=== PATIENT | female | born 1975 | race Caucasian/White ===

== ENCOUNTER 2024-08-30 16:53 | Inpatient (IN) | payer BC, OTHER ==
[~2024-08-30] VITALS: Ht 170.2 cm; Wt 129.0 kg
--- NOTE | 2024-08-30 17:17 | ED.PDOC ---
History of Present Illness HPI Comments 48-year-old female presents with a chief complaint of SOB x 2 weeks. Patient mentions that she has had 3 trips to the [facility] urgent care for the past 2 weeks and received breathing treatments, Rocephin injection, Steroid Injection, and chest x-ray. Patient mentions that the provider in urgent care told her that her chest x-ray "did not look good, but not bad either". Patient mentions that they referred her to the ER for IV antibiotics. No other symptoms or modifying factors present at this time. Patient is sating at 99% on room air. Chief Complaint: Shortness of Breath Time Seen by MD: 17:09 Reviewed Notes: Nurses Notes, Medications, Allergies Information Source: Patient Mode of Arrival: Ambulatory Severity: Moderate Timing: Weeks Duration: Since onset Prehospital treatment: None Past Medical History PAST MEDICAL HISTORY: Denies Surgical History: , Tubal Ligation HEALTHCARE SPECIALIST History: Denies all HEALTHCARE SPECIALIST Hx Family History Family History: Reviewed,noncontributory to illness Social History Smoker: Non-Smoker Alcohol: Occasionally Drugs: Marijuana Lives In: Home Constitutional: denies: chills, diaphoresis, fatigue, fever, malaise, sweats, weakness, others EENTM: denies: blurred vision, double vision, ear bleeding, ear discharge, ear drainage, ear pain, ear ringing, eye pain, eye redness, hearing loss, mouth pain, mouth swelling, nasal discharge, nose bleeding, nose congestion, nose pain, photophobia, tearing, throat pain, throat swelling, voice changes, others Respiratory: reports: SOB at rest, shortness of breath, SOB with excertion; denies: cough, hemoptysis, orthopnea, stridor, wheezing, others Cardiovascular: denies: chest pain, dizzy spells, diaphoresis, Dyspnea on exertion, edema, irregular heart beat, left arm pain, lightheadedness, palpitations, PND, syncope, others Gastrointestinal: denies: abdomen distended, abdominal pain, blood streaked bowels, constipated, diarrhea, dysphagia, difficulty swallowing, hematemesis, melena, nausea, poor appetite, poor fluid intake, rectal bleeding, rectal pain, vomiting, others Genitourinary: denies: abnormal vagina bleeding, burning, dyspareunia, dysuria, flank pain, frequency, hematuria, incontinence, pain, , vagina discharge, urgency, others Neurological: denies: dizziness, fainting, headache, left sided numbness, left sided weakness, numbness, paresthesia, pre-existing deficit, right sided numbness, right sided weakness, seizure, speech problems, tingling, tremors, weakness, others Musculoskeletal: denies: back pain, gout, joint pain, joint swelling, muscle pain, muscle stiffness, neck pain, others Integumetry: denies: bruises, change in color, change in hair/nails, dryness, laceration, lesions, lumps, rash, wounds, others Allergic/Immunocompromised: denies: Difficulty Healing, Frequent Infections, Hives, Itching, others Hematologic/Lymphatic: denies: anemia, blood clots, easy bleeding, easy bruising, swollen glands, others Endocrine: denies: excessive hunger, excessive sweating, excessive thirst, excessive urination, flushing, intolerance to cold, intolerance to heat, unexplained weight gain, unexplained weight loss, others Psychiatric: denies: anxiety, bipolar disorder, depression, hopeless, panic disorder, schizophrenia, sleepless, suicidal, others All Other Systems: Reviewed and Negative Physical Exam General Appearance: Mild Distress HEENT: Normal ENT Inspection, Pharynx Normal, TMs Normal Neck: Full Range of Motion, Non-Tender, Normal, Normal Inspection Respiratory: Chest Non-Tender, Lungs Clear, No Accessory Muscle Use, No Respiratory Distress, Normal Breath Sounds Cardiovascular: No Edema, No JVD, No Murmur, No Gallop, Normal Peripheral Pulses, Regular Rate/Rhythm Breast Exam: Deferred Gastrointestinal: No Organomegaly, Non Tender, No Pulsatile Mass, Normal Bowel Sounds, Soft Genitalia: Deferred Pelvic: Deferred Rectal: Deferred Extremities: No calf tenderness, Normal capillary refill, Normal inspection, Normal range of motion, Non-tender, No pedal edema Musculoskeletal : Apperance: Normal Neurologic: Alert, department chair II-XII nml as Tested, No Motor Deficits, Normal Affect, Normal Mood, No Sensory Deficits Cerebellar Function: Normal Reflexes: Normal Skin: Dry, Normal Color, Warm Lymphatic: No Adenopathy Was a procedure done? Was a procedure done?: No Differential Dx Considerations may include: Pneumonia, pneumonitis, CHF X-Ray, Labs, Meds, VS Vital Signs Date Time Temp Pulse Resp B/P (MAP) Pulse Ox O2 Delivery O2 Flow Rate FiO2 3/5/25 20:44 98.0 95 18 154/98 (116) 98 98.0 08/30/24 17:38 17 99 Room Air* 0 21 08/30/24 17:30 98.2 89 17 158/91 (113) 99 Lab Test 08/30/24 17:41 Range/Units White Blood Count 13.6 H 4.4-10.8 10^3/uL Red Blood Count 4.44 4.0-5.20 10^6/uL Hemoglobin 14.1 12.2-16.2 g/dL Hematocrit 41.6 36.0-46.0 % Mean Corpuscular Volume 93.9 80.0-100.0 fL Mean Corpuscular Hemoglobin 31.8 28.0-32.0 pg Mean Corpuscular Hemoglobin Concent 33.9 32.0-36.0 g/dL Red Cell Distribution Width 14.1 11.8-14.3 % Platelet Count 329 140-450 10^3/uL Mean Platelet Volume 8.0 6.9-10.8 fL Neutrophils (%) (Auto) 37.0-80.0 % Lymphocytes (%) (Auto) 10.0-50.0 % Monocytes (%) (Auto) 0.0-12.0 % Basophils (%) (Auto) 0.0-2.0 % Neutrophils # (Auto) 1.6-8.6 10 ^3/uL Lymphocytes # (Auto) 0.4-5.4 10 ^3/uL Monocytes # (Auto) 0-1.3 10 ^3/uL Differential Total Cells Counted 100.0 100 Neutrophils % (Manual) 78 37.0-80.0 Band Neutrophils % (Manual) 7 Lymphocytes % (Manual) 10 10.0-50.0 Monocytes % (Manual) 5 0-12 Eosinophils % (Manual) 0 0-7 Basophils % (Manual) 0 0.0-2.0 Metamyelocytes % (manual) 0 Myelocytes % (Manual) 0 Promyelocytes % (Manual) 0 Blast Cells % (Manual) 0 Reactive Lymphocytes 0 Platelet Estimate Adequate Sodium Level 139 136-145 mmol/L Potassium Level 4.3 3.5-5.1 mmol/L Chloride Level 103 98-107 mmol/L Carbon Dioxide Level 27 20-31 mmol/L Anion Gap 9 5-15 Blood Urea Nitrogen 20 9-23 mg/dL Creatinine 0.89 0.550-1.02 mg/dL Glomerular Filtration Rate Calc 79 >90 mL/min BUN/Creatinine Ratio 22.5 H 10.0-20.0 Serum Glucose 125 H 74-106 mg/dL Calcium Level 10.2 8.7-10.4 mg/dL Chest X-Ray Impression: No acute cardiopulmonary process The patient's CBC shows an elevated white blood cell count of 13.6 The chemistry panel is within normal limits except for mild hyperglycemia An IV Hep-Lock was established The patient was given Rocephin 1 g IV piggyback The patient was being admitted at this time. Images Reviewed?: Images reviewed and evaluated by me Time of 1ST Reevaluation: 17:39 Reevaluation 1ST: Unchanged Patient Education/Counseling: Diagnosis, Treatment, Prognosis Family Education/Counseling: Diagnosis, Treatment, Prognosis Departure 1 Departure Time of Disposition: 21:24 Impression: Primary Impression: Dyspnea Qualified Codes: R06.00 - Dyspnea, unspecified Additional Impression: Pneumonitis Disposition: ADMITTED INPATIENT Admit to: Med Surg Condition: Fair Critical Care Note Critical Care Time?: No Stability Stability form required: Yes Unstable for transfer: ED Physician Assesment (Clinical assesment) Heart Score Heart Score: Heart Score Response (Comments) Value History N/A 0 EKG N/A 0 Age N/A 0 Risk Factors N/A 0 Troponin N/A 0 Total 0 I personally scribed for OPAL HELTON MD ([email or web address]) on 08/30/24 at 17:17. Electronically submitted by Dung Luna [email or web address]). I personally scribed for OPAL HELTON MD ([email or web address]) on 08/30/24 at 18:23. Electronically submitted by Dung Luna [email or web address]). OPAL HELTON MD Aug 30, 2024 17:17
--- NOTE | 2024-08-30 17:41 | DVH ---
EXAM: XR Chest, 2 Views CLINICAL INDICATION: sob TECHNIQUE: Frontal and lateral views of the chest. COMPARISON: None FINDINGS: LUNGS AND PLEURAL SPACES: Unremarkable. No consolidation. No pneumothorax. HEART: Unremarkable. No cardiomegaly. MEDIASTINUM: Unremarkable. Normal mediastinal contour. BONES/JOINTS: Unremarkable. No acute fracture. OTHER FINDINGS: . None. IMPRESSION: No acute cardiopulmonary process.
[2024-08-30 18:15] LABS: Chloride 103 mmol/L (98-107); Potassium 4.3 mmol/L (3.5-5.1); Sodium 139 mmol/L (136-145)
[2024-08-30 18:16] LABS: Anion Gap 9 (5-15); Calcium 10.2 mg/dL (8.7-10.4); Carbon Dioxide 27 mmol/L (20-31)
[2024-08-30 18:21] LABS: BUN/Creatinine Ratio 22.5 (10.0-20.0); Blood Urea Nitrogen 20 mg/dL (9-23)
[2024-08-30 18:26] LABS: Glucose 125 mg/dL (74-106)
[2024-08-30 18:59] LABS: Hematocrit 41.6 % (36.0-46.0); Hemoglobin 14.1 g/dL (12.2-16.2); Mean Corpuscular Hemoglobin 31.8 pg (28.0-32.0); Mean Corpuscular Hgb Conc. 33.9 g/dL (32.0-36.0); Mean Corpuscular Volume 93.9 fL (80.0-100.0); Platelet Count (auto) 329 10^3/uL (140-450); Red Blood Cells 4.44 10^6/uL (4.0-5.20); Red Cell Distribution Width 14.1 % (11.8-14.3); White Blood Cell 13.6 10^3/uL (4.4-10.8)
[2024-08-30 19:00] LABS: Basophils % (manual) 0 (0.0-2.0); Blast Cells 0; Eosinophils % (manual) 0 (0-7); Metamyelocytes % 0; Myelocytes % 0; Promyelocytes % 0; Reactive Lymphocytes 0
[2024-08-30 19:38] LABS: Band Neutrophils % (manual) 7; Lymphocytes % (manual) 10 (10.0-50.0); Monocytes % (manual) 5 (0-12); Platelet Estimate Adequate
[2024-08-30] MEDS ORDERED: ACETAMINOPHEN 325 MG TAB PO PRN (22:00)
--- NOTE | 2024-08-30 22:24 | DVHHPRES ---
History of Present Illness Resident Creating Document: MIRZA BANKS History of Present Illness This is a 48-year-old female with past medical history of migraines. The patient presented to the ED with chief complaint of acute shortness of breath. The patient reports that she started feeling sick home August 16/2025 and went to the urgent care on August 21/2025 where she was treated for pneumoniae. Patient stated that she continue having symptoms reason why she went back to the urgent care on August [id number] and she got ceftriaxone and azithromycin. Was di scharged home on she was hiking and azithromycin at that time, she just took azithromycin. The patient presented today to the ED with similar symptoms associated with chills, shaky and shortness of breaths but denies fever. The patient states that she has been having shortness of breath even at rest that exacerbates with very minimal exertion. He also reported episodes of palpit ation and very mild chest discomfort. The patient also reports cough but no sputum production at this time. The patient denied swelling in her legs or any previous history of clots in her or her family. Initial labs on admission showed a WBC of 13.6 but rest of the labs were grossly unremarkable. Initial chest x-ray was grossly clear with no evidence of clear consolidation or v ascular congestion. We ordered a D-dimer, we will admit the patient for further assessment and management. Past medical history: Migraines Home medications: None Social history: Smoked for 10 years but quit. Drinks alcohol occasionally and denies any drug intake. ESL TEACHER: Migraine Past Surgical History: None Family History: None Smoke: Quit ALCOHOL: occassional Drugs: None Lives: with Family Domestic Violence: Neg Review of Systems Constitutional: Yes: Chills, Sweats; No: Fever, Weakness, Malaise, Other Eyes: No: Pain, Vision change, Conjunctivae inflammation, Eyelid inflammation, Other, Redness ENT: No: Ear pain, Ear discharge, Nose pain, Nose discharge, Nose congestion, Mouth pain, Mouth swelling, Throat pain, Throat swelling, Other Respiratory: Cough, Dry, Shortness of breath, SOB with excertion; No: Wheezing, Hemoptysis, Pleuritic Pain, Sputum, Wheezing, Other Cardiovascular: No: Chest Pain, Palpitations, Orthopnea, Paroxysmal Noc. Dyspnea, Edema, Lt Headedness, Other Gastrointestinal: No: Nausea, Vomiting, Abdominal Pain, Diarrhea, Constipation, Melena, Hematochezia, Other Genitourinary: No Dysuria, No Frequency, No Incontinence, No Hematuria, No Retention, No Other Musculoskeletal: No: other, neck pain, shoulder pain, arm pain, back pain, hand pain, leg pain, foot pain Skin: No: Rash, Lesions, Jaundice, Bruising, Other Neurological: No: Weakness, Numbness, Incoordination, Change in speech, Confusion, Seizures, Other Allergies: Coded Allergies: NO KNOWN ALLERGIES (Unverified , 08/30/24) Exam Vital Signs Vital Signs Date Time Temp Pulse Resp B/P (MAP) Pulse Ox O2 Delivery O2 Flow Rate FiO2 08/30/24 20:44 98.0 95 18 154/98 (116) 98 98.0 08/30/24 17:38 Room Air* 0 21 General Appearance: Alert, Oriented X3, Cooperative, No acute distress HEENT: Atraumatic, PERRLA, EOMI, Mucous membr. moist/pink Respiratory: Clear to auscultation, Normal air movement Cardiovascular: Regular rate, Normal S1, Normal S2, No murmurs Abdominal: Normal bowel sounds, Soft, No tenderness, No hepatospenomegaly, No masses Extremities: No clubbing, No cyanosis, No edema, Normal pulses, No tenderness/swelling Skin: No rashes, No breakdown, No significant lesion Neuro: Normal gait, Normal speech, Strength at 5/5 X4 ext, Normal tone, Sensation intact, Cranial nerves 3-12 NL, Reflexes 2+ Psych/Mental Status: Mental status NL, Mood NL Labs/Xrays Labs Test 08/30/24 21:26 08/30/24 17:41 Range/Units White Blood Count 13.6 H 4.4-10.8 10^3/uL Red Blood Count 4.44 4.0-5.20 10^6/uL Hemoglobin 14.1 12.2-16.2 g/dL Hematocrit 41.6 36.0-46.0 % Mean Corpuscular Volume 93.9 80.0-100.0 fL Mean Corpuscular Hemoglobin 31.8 28.0-32.0 pg Mean Corpuscular Hemoglobin Concent 33.9 32.0-36.0 g/dL Red Cell Distribution Width 14.1 11.8-14.3 % Platelet Count 329 140-450 10^3/uL Mean Platelet Volume 8.0 6.9-10.8 fL Neutrophils (%) (Auto) 37.0-80.0 % Lymphocytes (%) (Auto) 10.0-50.0 % Monocytes (%) (Auto) 0.0-12.0 % Basophils (%) (Auto) 0.0-2.0 % Neutrophils # (Auto) 1.6-8.6 10 ^3/uL Lymphocytes # (Auto) 0.4-5.4 10 ^3/uL Monocytes # (Auto) 0-1.3 10 ^3/uL Differential Total Cells Counted 100.0 100 Neutrophils % (Manual) 78 37.0-80.0 Band Neutrophils % (Manual) 7 Lymphocytes % (Manual) 10 10.0-50.0 Monocytes % (Manual) 5 0-12 Eosinophils % (Manual) 0 0-7 Basophils % (Manual) 0 0.0-2.0 Metamyelocytes % (manual) 0 Myelocytes % (Manual) 0 Promyelocytes % (Manual) 0 Blast Cells % (Manual) 0 Reactive Lymphocytes 0 Platelet Estimate Adequate Sodium Level 139 136-145 mmol/L Potassium Level 4.3 3.5-5.1 mmol/L Chloride Level 103 98-107 mmol/L Carbon Dioxide Level 27 20-31 mmol/L Anion Gap 9 5-15 Blood Urea Nitrogen 20 9-23 mg/dL Creatinine 0.89 0.550-1.02 mg/dL Glomerular Filtration Rate Calc 79 >90 mL/min BUN/Creatinine Ratio 22.5 H 10.0-20.0 Serum Glucose 125 H 74-106 mg/dL Calcium Level 10.2 8.7-10.4 mg/dL Assessment/Plan Assessment/Plan Assessment/Plan Acute hypoxic respiratory failure, R/O Pulmonary embolism Viral pneumonia Possible gram +/- bacterial pneumonia -initial chest x-ray was grossly clear, no evidence of consolidation or vascular congestion at this time -Patient currently on room air sat 97% -Ordered covid-19 shanika test and influenza A and B -Ordered D- Dimer, which came back normal -Order CT chest w/o contrast -Resp therapy with albuterol and ipratropium med nebs -Start IV azythromycin -Start IV fluids at 75cc/hr -Ketorolac 15mg IV q6 PRN, Acetaminophen 650mg Q6 PRN for pain modulation -Monitor O2 sat Hx of migraines -Ketorolac 15mg IV q6 PRN, Acetaminophen 650mg Q6 PRN for pain modulation -Monitor, stable at this time Dyslipidemia -Ordered lipid panel which showed hypercholesterolemia. high triglycerides and LDL -Start atorvastatin 40mg daily GI prophylaxis -Not needed at this time DVT prophylaxys -Enoxaparin 40mg SC daily Goals of care discussed with the patient at bedside for >35min, FULL CODE Plan discussed with Dr. Hernandez Plan discussed with: Patient My Orders Orders - MIRZA BANKS Procedure Category Date Status Time Admit ADMIT 08/30/24 Transmitted 21:53 Code Status CODE 08/30/24 Transmitted 21:53 Vital Signs JUAN 08/30/24 In Process 21:53 Review Orders With JUAN 08/30/24 In Process Adm. 21:53 Encourage Activity As JUAN 08/30/24 In Process Tolerate 21:53 Regular Diet DIET 08/31/24 Transmitted Breakfast Acetaminophen Tablet PHA 08/30/24 Logged (Tylenol Tablet) 22:00 Notify Md Of Changes JUAN 08/30/24 In Process From Base 21:53 Advance Directive JUAN 08/30/24 In Process 21:53 Urinalysis LAB 08/30/24 Logged 21:53 Lipid Panel LAB 08/30/24 Logged 21:53 Patient Condition ORDERS 08/30/24 Transmitted 21:53 Allergies JUAN 08/30/24 In Process 21:53 Drug Screen LAB 08/30/24 Logged 21:53 Hemoglobin A1c LAB 08/30/24 Logged 21:53 Rapid Influenza A&B LAB 08/30/24 Transmitted 22:00 Date of Service: Aug 30, 2024 Billing Provider: ROLANDO HERNANDEZ MD Common Visit Codes: [id number] INP/OBS CARE (HIGH) MIRZA BANKS RESIDENT Aug 30, 2024 22:24 ROLANDO HERNANDEZ MD Aug 31, 2024 17:52
[2024-08-30] MEDS: SODIUM CHLORIDE 0.9% 1,000 ML IV ONE ×2 (22:29→22:30)
[2024-08-30] MEDS: cefTRIAXone 1GM/50ML D5W 50 ML IV ONE (22:30)
[2024-08-30] MEDS ORDERED: KETOROLAC TROMETH 30 MG/ML 1ML VIAL IV PRN (22:30)
[2024-08-30 22:34] LABS: Cholesterol 236 mg/dL (< 200); HDL Cholesterol 62 mg/dL (40-59); LDL Cholesterol 151 mg/dL (< 100); Triglycerides 197 mg/dL (< 150)
[2024-08-30 22:48] VITALS: PULSE 86; RESP 16; O2SAT 97
[2024-08-30 22:51] VITALS: BP 154/98; PULSE 89; RESP 20; TEMP 98.2; O2SAT 92
[2024-08-30] MEDS: AZITHROMYCIN 500MG/ 250ML 250 ML IV SCH (23:00)
[2024-08-30 23:21] LABS: Urine Bacteria FEW /hpf (None Seen); Urine Blood 2+ /uL (Negative); Urine Clarity Turbid (Clear); Urine Color Yellow (Yellow); Urine Mucus FEW (None Seen); Urine Protein, UAD TRACE (Negative); Urine Specific Gravity 1.031 (1.001-1.035); Urine Squamous Epithelial Cell FEW /hpf (<5); Urine Urobilinogen Normal (Negative); Urine WBC 1 /HPF (0-5); Urine pH 5.5 (5.0-9.0)
[2024-08-30 23:34] LABS: Amphetamine Screen, Urine Neg (NEGATIVE); Barbiturate Scree,Urine Neg (NEGATIVE); Benzodiazephine Screen, Urine Neg (NEGATIVE); Cannabinoid Screen, Urine Neg (NEGATIVE); Cocaine Screen, Urine Neg (NEGATIVE); Opiate Scree,Urine Neg (NEGATIVE); Phencyclidine Screen, Urine Neg (NEGATIVE)
[2024-08-30 23:43] VITALS: PULSE 86; RESP 20; O2SAT 95
[2024-08-30] MEDS: IPRATROPIUM BROM 0.5 MG/2.5ML INH SOL NEB SCH (23:43)
[2024-08-30] MEDS: ALBUTEROL SULF 2.5 MG/0.5ML(0.5%) NEB SOLN NEB SCH (23:43)
[2024-08-30 23:44] LABS: COVID19 ANTIGEN SOFIA FIA NEGATIVE (NEGATIVE); Rapid Influenza A Negative (Negative); Rapid Influenza B Negative (Negative)
--- NOTE | 2024-08-30 23:50 | DVH ---
Exam: CT CHEST WITHOUT CONTRAST History: R/O PNA or other parenchymal lung disease Comparison Study: None Contrast: None TECHNIQUE: Multidetector CT of the chest without intravenous contrast. Radiation Dose Information: CT Dose: CTDI volume is 19.77 mGy. 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 Lungs are clear. Lower esophagus is unremarkable heart remains within normal limits for size. Aorta and main pulmonary arteries or generally unremarkable. Pancreas is normal. Spleen, visualized k idneys are generally unremarkable. Adrenals are normal. Gallbladder is contracted and liver is genera lly unremarkable. IMPRESSION: 1. No acute findings
[2024-08-30 23:53] VITALS: PULSE 84; RESP 20; O2SAT 98
[2024-08-31] VITALS (9 sets, daily range): BP systolic 142–159; BP diastolic 85–94; PULSE 72–84; RESP 16–20; TEMP 97.5–98.3; O2SAT 96–100
[2024-08-31] MEDS: ATORVASTATIN 20 MG TAB PO SCH (09:22)
[2024-08-31] MEDS: ENOXAPARIN SOD 40 MG/0.4 ML SYRINGE SC SCH (09:22)
[2024-08-31 10:42] LABS: Basophils # (auto) 0 10 ^3/uL (0-0.2); Basophils % (auto) 0.3 % (0.0-2.0); Eosinophils # (auto) 0.1 10 ^3/uL (0-0.8); Eosinophils % (auto) 0.5 % (0.0-7.0); Hematocrit 40.9 % (36.0-46.0); Hemoglobin 13.8 g/dL (12.2-16.2); Lymphocytes % (auto) 33.4 % (10.0-50.0); Mean Corpuscular Hemoglobin 31.6 pg (28.0-32.0); Mean Corpuscular Hgb Conc. 33.7 g/dL (32.0-36.0); Mean Corpuscular Volume 93.8 fL (80.0-100.0); Monocytes # (auto) 1.2 10 ^3/uL (0-1.3); Neutrophils # (auto) 8.6 10 ^3/uL (1.6-8.6); Neutrophils % (auto) 57.8 % (37.0-80.0); Platelet Count (auto) 311 10^3/uL (140-450); Red Blood Cells 4.36 10^6/uL (4.0-5.20); Red Cell Distribution Width 14.1 % (11.8-14.3); White Blood Cell 14.9 10^3/uL (4.4-10.8)
[2024-08-31] MEDS: cefTRIAXone 1GM/50ML D5W 50 ML IV ONE (11:34)
--- NOTE | 2024-08-31 12:44 | DVHPNRES ---
Progress Note Date Seen: Aug 31, 2024 Resident Creating Document: SHYANN BETTS RESIDENT Medical Necessity Reason Pt with a Central, PICC or Fol: No Subjective Review of Systems Ms. Orozco is a 48-year-old female with past medical history of migraine who does not follow a physician, presented to the ER with a chief complaint of shortness of breaths. She reports starting feeling short of breath 2 weeks earlier for which she went to urgent care and was prescribed doxycycline which she continued for a week without getting improvement. She returned to the urgent care and was then prescribed azithromycin for the next 10 days along with 1 shot of ceftriaxone. Two days later, patient's condition did not improve and she went again to the urgent care upon which she was sent to the ER. She says that her condition has been stable, not worsening or improving for this time associated with chills with dry cough but denies fever, recent travel or any sick contacts. Shortness of breaths mostly on exertion, she denies orthopnea or PND. On admission WBC was 13, which increased to 14.9. She received IV azithromycin starting 08/30 and IV ceftriaxone starting 08/31. Respiratory culture ordered. D-dimer is unremarkable. She quit smoking at the age of 19, denies drinking/illicit drug use. Past medical history: Migraine Past surgical history: Unremarkable Social history: Smokes cigarettes in teens, quit at age of 19, denies drinking or illicit drug use. Works at a dialysis center. Home medications: None 08/31-patient seen and examined at bedside. Sitting comfortably in the chair. Started IV ceftriaxone. Objective vital signs Vital Sign Date Time Temp Pulse Resp B/P (MAP) Pulse Ox O2 Delivery O2 Flow Rate FiO2 08/31/24 12:15 97.7 84 18 145/85 (105) 99 97.7 08/31/24 10:01 Room Air 08/31/24 10:01 0 21 Total Intake and Output 08/30/24 08/30/24 08/31/24 15:00 23:00 07:00 Intake Total 50 ml 250 ml Balance 50 ml 250 ml medications Current Medications Medications Dose Ordered Sig/Hui Route Start Time Stop Time Status Last Admin Dose Admin Acetaminophen 650 mg Q6HP PRN PO 08/30/24 22:00 Albuterol 2.5 mg Q6HR NEB 08/31/24 00:00 08/31/24 07:30 2.5 MG Ipratropium Harned 0.5 mg Q6HR NEB 08/31/24 00:00 08/31/24 07:30 0.5 MG Azithromycin 250 ml @ 125 mls/hr Q24H IV 08/30/24 22:30 08/30/24 23:00 125 MLS/HR Ketorolac Tromethamine 15 mg Q6HP PRN IV 08/30/24 22:30 09/04/24 22:29 Atorvastatin Calcium 40 mg DAILY PO 08/31/24 10:00 08/31/24 09:22 40 MG Enoxaparin Sodium 40 mg DAILY SC 08/31/24 10:00 08/31/24 09:22 40 MG Examination Patient lying in bed, in no acute distress General: Well-built, afebrile, palor, mucosae are moist Cardiovascular: Regular S1 and S2. No murmurs, gallops or rubs. No JVD elevation. No pedal edema Respiratory: Decreased bilateral air entry in the lower lung prakash. Saturating 97 on room air. Abdomen: Soft, nontender, nondistended, normoactive bowel sounds, no rebound tenderness, no organomegaly, no masses Genitourinary: Deferred MSK/skin: Mobilizes 4 limbs. Skin is dry and warm Neurological: No motor, no sensitive deficits, normal speech. Pupils are isocoric and reactive. Psych/Mental Status: A/Ox3 laboratory and microbiology Laboratory Tests 08/31/24 10:24 08/30/24 17:41 Test 08/30/24 17:41 Range/Units Serum Glucose 125 H 74-106 mg/dL Labs and/or images reviewed: Labs reviewed by me, Image(s) reviewed by me Problem List/Assessment/Plan Problem List/Assessment/Plan Community-acquired pneumonia, mixed Gram-positive and negative superimposed on possible viral infection Negative COVID and influenza test Negative D-dimer Started IV azithromycin 08/30, started IV ceftriaxone 08/31 Sputum culture with induction pending CT chest without contrast completed, unremarkable Received IV fluids History of migraine headache Continue ketorolac 15 mg IV q.6 p.r.n. along with acetaminophen 650 mg q.6 p.r.n. Dyslipidemia 10 year ASCVD risk 2.3 Started atorvastatin 40 mg HS Enoxaparin 40 mg sc daily for DVT prophylaxis Regular diet Plan discussed with patient in which all questions have been answered Goals of care discussed with the patient for more than 28 minutes, full code status Case discussed with Dr. Newberry Plan discussed with: Patient SHYANN BETTS RESIDENT Aug 31, 2024 12:44
[2024-08-31 13:55] LABS: Alanine Aminotransferase 29 U/L (7-40); Albumin 4.4 g/dL (3.2-4.8); Alkaline Phosphatase 84 U/L (46-116); Aspartate Aminotransferase 16 U/L (13-40); Bilirubin, Total 0.4 mg/dL (0.2-1.0); Total Protein 7.5 g/dL (5.7-8.2)
--- NOTE | 2024-08-31 13:56 | DVHDSRES ---
Discharge Summary Date of Admission Resident Creating Document: SHYANN BETTS RESIDENT Aug 30, 2024 at 21:53 Date of Discharge: Aug 31, 2024 Labs/Diagnostic Data: Laboratory Results Test 08/31/24 10:24 08/31/24 00:26 08/30/24 23:09 08/30/24 21:26 White Blood Count 14.9 10^3/uL (4.4-10.8) Red Blood Count 4.36 10^6/uL (4.0-5.20) Hemoglobin 13.8 g/dL (12.2-16.2) Hematocrit 40.9 % (36.0-46.0) Mean Corpuscular Volume 93.8 fL (80.0-100.0) Mean Corpuscular Hemoglobin 31.6 pg (28.0-32.0) Mean Corpuscular Hemoglobin Concent 33.7 g/dL (32.0-36.0) Red Cell Distribution Width 14.1 % (11.8-14.3) Platelet Count 311 10^3/uL (140-450) Mean Platelet Volume 7.8 fL (6.9-10.8) Neutrophils (%) (Auto) 57.8 % (37.0-80.0) Lymphocytes (%) (Auto) 33.4 % (10.0-50.0) Monocytes (%) (Auto) 8.0 % (0.0-12.0) Eosinophils (%) (Auto) 0.5 % (0.0-7.0) Basophils (%) (Auto) 0.3 % (0.0-2.0) Neutrophils # (Auto) 8.6 10 ^3/uL (1.6-8.6) Lymphocytes # (Auto) 5.0 10 ^3/uL (0.4-5.4) Monocytes # (Auto) 1.2 10 ^3/uL (0-1.3) Eosinophils # (Auto) 0.1 10 ^3/uL (0-0.8) Basophils # (Auto) 0 10 ^3/uL (0-0.2) Nucleated Red Blood Cells 0.0 % Troponin I High Sensitivity < 3 ng/L (</=34) Urine Color Yellow (Yellow) Urine Clarity Turbid (Clear) Urine pH 5.5 (5.0-9.0) Urine Specific [place] 1.031 (1.001-1.035) Urine Protein Trace (Negative) Urine Ketones Trace (Negative) Urine Blood 2+ /uL (Negative) Urine Nitrite Negative (Negative) Urine Bilirubin Negative (Negative) Urine Urobilinogen Normal mg/dL (Negative) Urine Leukocyte Esterase Negative /uL (Negative) Urine RBC 2 /hpf (0 - 4) Urine Microscopic WBC 1 /HPF (0-5) Urine Squamous Epithelial Cells Few /hpf (<5) Urine Bacteria Few /hpf (None Seen) Urine Mucus Few (None Seen) Urine Glucose Normal mg/dL (Normal) Urine Opiates Screen Neg (NEGATIVE) Urine Fentanyl Screen Neg (NEGATIVE) Urine Barbiturates Screen Neg (NEGATIVE) Urine Phencyclidine Screen Neg (NEGATIVE) Urine Amphetamines Screen Neg (NEGATIVE) Urine Benzodiazepines Screen Neg (NEGATIVE) Urine Cocaine Screen Neg (NEGATIVE) Urine Cannabinoids Screen Neg (NEGATIVE) Influenza Type A Antigen Negative (Negative) Influenza Type B Antigen Negative (Negative) SARS-CoV-2 Antigen (Rapid) Negative (NEGATIVE) D-Dimer, Quantitative 0.39 mg/L FEU (0.0-0.49) Hemoglobin A1c 5.3 % A1C (<5.7) Triglycerides Level 197 mg/dL (< 150) Cholesterol Level 236 mg/dL (< 200) LDL Cholesterol 151 mg/dL (< 100) HDL Cholesterol 62 mg/dL (40-59) Test 08/30/24 17:41 Differential Total Cells Counted 100.0 (100) Neutrophils % (Manual) 78 (37.0-80.0) Band Neutrophils % (Manual) 7 Lymphocytes % (Manual) 10 (10.0-50.0) Monocytes % (Manual) 5 (0-12) Eosinophils % (Manual) 0 (0-7) Basophils % (Manual) 0 (0.0-2.0) Metamyelocytes % (manual) 0 Myelocytes % (Manual) 0 Promyelocytes % (Manual) 0 Blast Cells % (Manual) 0 Reactive Lymphocytes 0 Platelet Estimate Adequate Sodium Level 139 mmol/L (136-145) Potassium Level 4.3 mmol/L (3.5-5.1) Chloride Level 103 mmol/L (98-107) Carbon Dioxide Level 27 mmol/L (20-31) Anion Gap 9 (5-15) Blood Urea Nitrogen 20 mg/dL (9-23) Creatinine 0.89 mg/dL (0.550-1.02) Glomerular Filtration Rate Calc 79 mL/min (>90) BUN/Creatinine Ratio 22.5 (10.0-20.0) Serum Glucose 125 mg/dL (74-106) Calcium Level 10.2 mg/dL (8.7-10.4) Other Laboratory Tests 08/31/24 10:24 08/30/24 17:41 Brief Hx & Hospital Course: Ms. Orozco is a 48-year-old female with past medical history of migraine who does not follow a physician, presented to the ER with a chief complaint of shortness of breaths. She reports starting feeling short of breath 2 weeks earlier for which she went to urgent care and was prescribed doxycycline which she continued for a week without getting improvement. She returned to the urgent care and was then prescribed azithromycin for the next 10 days along with 1 shot of ceftriaxone. Two days later, patient's condition did not improve and she went again to the urgent care upon which she was sent to the ER. She says that her condition has been stable, not worsening or improving for this time associated with chills with dry cough but denies fever, recent travel or any sick contacts. Shortness of breaths mostly on exertion, she denies orthopnea or PND. On admission WBC was 13, which increased to 14.9. She received IV azithromycin starting 08/30 and IV ceftriaxone starting 08/31. Respiratory culture ordered. D-dimer is unremarkable. She quit smoking at the age of 19, denies drinking/illicit drug use. Past medical history: Migraine Past surgical history: Unremarkable Social history: Smokes cigarettes in teens, quit at age of 19, denies drinking or illicit drug use. Works at a dialysis center. Home medications: None 08/31-patient seen and examined at bedside. Sitting comfortably in the chair. Started IV ceftriaxone. During the hospitalization, patient was diagnosed with possible community- acquired pneumonia, mixed Gram-positive and negative superimposed on viral infection. She was started on IV azithromycin which she received for 2 days. she received 1 dose of IV ceftriaxone. CT chest was completed without contrast which was unremarkable. Patient received IV fluids also. Started atorvastatin 40 mg HS for dyslipidemia. Ten year ASCVD risk was 2.3% only. Discharge instructions: 08/31-patient is hemodynamically stable, clinically stable, no acute distress, stable on room air therefore he has been discharged home with the advice to follow up with primary care physician within 7 days and repeat CBC. Follow up with discharge clinic appointment within 7 days. She is advised to continue her home medication doxycycline for the next 4 days. Also advised to continue atorvastatin 40 mg HS daily Discharge diagnosis Community-acquired pneumonia, mixed Gram-positive and negative superimposed on possible viral infection History of migraine headache Dyslipidemia Operations or Procedures ORDERING PHYSICIAN: MIRZA BANKS PROCEDURE(s): CX2CT - CHEST WITHOUT CONTRAST REASON: R/O PNA or other parenchymal lung disease ORDER NUMBER(s): [id number], ACCESSION NUMBER(s): [id number] Exam: CT CHEST WITHOUT CONTRAST History: R/O PNA or other parenchymal lung disease Comparison Study: None Contrast: None TECHNIQUE: Multidetector CT of the chest without intravenous contrast. Radiation Dose Information: CT Dose: CTDI volume is 19.77 mGy. 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 Lungs are clear. Lower esophagus is unremarkable heart remains within normal limits for size. Aorta and main pulmonary arteries or generally unremarkable. Pancreas is normal. Spleen, visualized kidneys are generally unremarkable. Adrenals are normal. Gallbladder is contracted and liver is generally unremarkable. IMPRESSION: 1. No acute findings ATED BY: KUMAR SALTER MD DICTATED DATE/TIME: 08/30/242345 SIGNED BY: KUMAR SALTER MD SIGNED DATE/TIME: 08/30/24 234 CC: Condition at Discharge: Stable Final Diagnosis/Problems List Community-acquired pneumonia, mixed Gram-positive and negative superimposed on possible viral infection History of migraine headache Dyslipidemia Discharge Disposition: Home Discharge Instruct/Medications Diet: Regular Activity: No Restrictions, As Tolerated Follow Up/Referral: Followup with primary care physician within 7 days for repeat CBC Followup with [facility] within 7 days Medications: Cont home med Dcycycline for next 4 days Discharge Statement: "Patient was advised to return to the ER or call 911 if any headaches, dizziness, shortness of breath, chest pain, abdominal pain, bleeding, fevers, or worsening of medical condition. Patient was counseled about treatment plan, medications, possible side effects, patientverbalized understanding. All questions were answered to the best of my ability. This discharge took greater then 30 minutes in planning, reviewing documentation, counseling the patient, and discussing with other team members." ASSESSMENT ASSESSMENT Assessment Community-acquired pneumonia, mixed Gram-positive and negative superimposed on possible viral infection SHYANN BETTS RESIDENT Aug 31, 2024 13:56
[2024-08-31] MEDS ORDERED: ATOR40TA52 PO (14:00)
[2024-08-31 14:03] LABS: Bilirubin, Direct < 0.1 mg/dL (<0.3)
[2024-09-01] MEDS ORDERED: cefTRIAXone 1GM/50ML D5W 50 ML IV SCH (09:00)
== END 2024-08-31 14:45 | disposition home or self-care (01) | DRG 177 ==
LOC: ER 16:53 → OVERFLOW 21:53
PROVIDERS: ADMIT Student in an Organized Health Care Education/Training Program; ATTEND Student in an Organized Health Care Education/Training Program
DX: J15.69 Pneumonia due to other Gram-negative bacteria (principal); J96.01 Acute respiratory failure with hypoxia; J15.9 Unspecified bacterial pneumonia; Z20.822 Contact with and (suspected) exposure to COVID-19; J12.9 Viral pneumonia, unspecified; J98.4 Other disorders of lung; E78.00 Pure hypercholesterolemia, unspecified; G43.909 Migraine, unspecified, not intractable, without status migrainosus; Z79.899 Other long term (current) drug therapy
CPT/HCPCS: 36415; 71046; 71250; 80048; 80061; 80076; 80307; 81001; 82306; 82607; 83036; 84443; 84484; 85007; 85025; 85027; 85379; 87081; 87426; 87804; 94640; G0378

== ENCOUNTER → 2024-09-13 | Outpatient (CLI) | payer BC ==
[~2024-09-13] MED LIST: ATOR40TA52 PO
[2024-09-13 16:04] LABS: Basophils # (auto) 0 10 ^3/uL (0-0.2); Basophils % (auto) 0.3 % (0.0-2.0); Eosinophils # (auto) 0.2 10 ^3/uL (0-0.8); Eosinophils % (auto) 2.3 % (0.0-7.0); Hematocrit 36.6 % (36.0-46.0); Hemoglobin 12.4 g/dL (12.2-16.2); Lymphocytes # (auto) 2.6 10 ^3/uL (0.4-5.4); Lymphocytes % (auto) 33.1 % (10.0-50.0); Mean Corpuscular Hemoglobin 31.5 pg (28.0-32.0); Mean Corpuscular Hgb Conc. 33.8 g/dL (32.0-36.0); Mean Corpuscular Volume 93.3 fL (80.0-100.0); Monocytes # (auto) 0.6 10 ^3/uL (0-1.3); Monocytes % (auto) 7.8 % (0.0-12.0); Neutrophils # (auto) 4.5 10 ^3/uL (1.6-8.6); Neutrophils % (auto) 56.5 % (37.0-80.0); Platelet Count (auto) 218 10^3/uL (140-450); Red Blood Cells 3.92 10^6/uL (4.0-5.20); Red Cell Distribution Width 13.7 % (11.8-14.3); White Blood Cell 7.9 10^3/uL (4.4-10.8)
[2024-09-13 16:11] LABS: Urine Bacteria FEW /hpf (None Seen); Urine Blood Negative /uL (Negative); Urine Clarity Clear (Clear); Urine Color Yellow (Yellow); Urine Mucus FEW (None Seen); Urine Protein, UAD Negative (Negative); Urine Specific Gravity 1.025 (1.001-1.035); Urine Squamous Epithelial Cell FEW /hpf (<5); Urine Urobilinogen Normal (Negative); Urine WBC 1 /HPF (0-5); Urine pH 5.5 (5.0-9.0)
[2024-09-13 16:53] LABS: Albumin 4.3 g/dL (3.2-4.8); Alkaline Phosphatase 91 U/L (46-116); Anion Gap 6 (5-15); Aspartate Aminotransferase 22 U/L (13-40); BUN/Creatinine Ratio 17.4 (10.0-20.0); Blood Urea Nitrogen 15 mg/dL (9-23); Calcium 9.9 mg/dL (8.7-10.4); Carbon Dioxide 30 mmol/L (20-31); Chloride 105 mmol/L (98-107); Glucose 86 mg/dL (74-106); Potassium 3.9 mmol/L (3.5-5.1); Sodium 141 mmol/L (136-145); Total Protein 7.1 g/dL (5.7-8.2)
[2024-09-13 16:54] LABS: Bilirubin, Total 0.3 mg/dL (0.2-1.0)
[2024-09-13 16:56] LABS: Alanine Aminotransferase 45 U/L (7-40)
== END | disposition home or self-care (01) ==
LOC: LAB 15:41
PROVIDERS: ATTEND Obstetrics & Gynecology
DX: N93.1 Pre-pubertal vaginal bleeding (principal); E28.2 Polycystic ovarian syndrome; N39.0 Urinary tract infection, site not specified
CPT/HCPCS: 36415; 80053; 81001; 82306; 82670; 83001; 83036; 84443; 85025; 87086